=== PATIENT | male | born 1990 | race Caucasian/White ===

== ENCOUNTER 2016-08-07 08:09 | Emergency (ER) | payer SELFPAY ==
--- NOTE | 2016-08-07 08:26 | ER Document Report ---
ED GI/ - General Mode of Arrival: Ambulatory Information source: Patient - HPI Patient complains to provider of: Abdominal pain Onset: Other - see above Timing/Duration: Persistent Quality of pain: Cramping <DELORES GOEL - Last Filed: 08/08/16 06:04> <BOBBY BALDWIN - Last Filed: 08/13/16 22:48> - General Stated Complaint: ABDOMINAL PAIN Time Seen by Provider: 08/07/16 08:25 Notes: Patient is a 26-year-old male who presents to the emergency department today with complaints of right flank and right lower quadrant pain. Patient states he has had decreased urine output. Patient does note that he has been lifting frequent heavy objects at work. Patient states he had a normal bowel movement yesterday. Patient denies any nausea, vomiting, diarrhea, or recent trauma to that area. (DELORES GOEL) - Related Data Allergies/Adverse Reactions: No Known Allergies Allergy (Unverified 04/12/13 22:49) Past Medical History - General Information source: Patient - Social History Smoking Status: Current Every Day Smoker Cigarette use (# per day): Yes Frequency of alcohol use: None Drug Abuse: None Lives with: Family Family History: None Pulmonary Medical History: Reports: Hx Asthma Psychiatric Medical History: Reports: Hx Depression Past Surgical History: Reports: Hx Testicular Surgery - vasectomy 03/27 - Immunizations Hx Diphtheria, Pertussis, Tetanus Vaccination: Yes <DELORES GOEL - Last Filed: 08/08/16 06:04> Review of Systems - Review of Systems Constitutional: No symptoms reported EENT: No symptoms reported Cardiovascular: No symptoms reported Respiratory: No symptoms reported Gastrointestinal: See HPI, Abdominal pain. denies: Diarrhea, Nausea, Vomiting Genitourinary: No symptoms reported Male Genitourinary: No symptoms reported Musculoskeletal: No symptoms reported Skin: No symptoms reported Hematologic/Lymphatic: No symptoms reported Neurological/Psychological: No symptoms reported -: Yes All other systems reviewed and negative <DELORES GOEL - Last Filed: 08/08/16 06:04> Physical Exam <DELORES GOEL - Last Filed: 08/08/16 06:04> <BOBBY BALDWIN - Last Filed: 08/13/16 22:48> - Vital signs Vitals: Temp Pulse Resp BP Pulse Ox 97.9 F 53 L 16 130/77 H 100 08/07/16 08:16 08/07/16 08:16 08/07/16 08:16 08/07/16 08:16 08/07/16 08:16 - Notes Notes: Physical Exam: General: Alert, appears well. HEENT: Normocephalic. Atraumatic. PERRL. Extraocular movements intact. Oropharynx clear. Neck: Supple. Non-tender. Respiratory: No respiratory distress. Clear and equal breath sounds bilaterally. Cardiovascular: Regular rate and rhythm. Abdominal: Mild right lower quadrant tenderness with palpation. No distension. Normal Bowel Sounds. Genitourinary: Denies testicular pain. Back: Non-tender. No deformity or step off. Extremities: Moves all four extremities. Upper extremities: Normal inspection. Normal ROM. Lower extremities: Normal inspection. No edema. Normal ROM. Neurological: Normal cognition. AAOx4. Normal speech. Psychological: Normal affect. Normal Mood. Skin: Warm. Dry. Normal color. (DELORES GOEL) Course - Laboratory Result Diagrams: 08/07/16 10:32 08/07/16 10:32 <DELORES GOEL - Last Filed: 08/08/16 06:04> - Laboratory Result Diagrams: 08/07/16 10:32 08/07/16 10:32 <BOBBY BALDWIN - Last Filed: 08/13/16 22:48> - Re-evaluation Re-evalutation: 08/07/16 13:26 08/07/16 14:17 Patient presents emergency department chief complaint abdominal pain. He says it was severe he was doubled over and girlfriends and he was crying attending is emerged from he says completely resolved. He denies any nausea vomiting diarrhea or blood in the stool. No fevers chills cough chest pain or shortness of breath. Denies any history of trauma testicular pain or urinary complaints other than to say that he is having trouble urinating. Says he thinks he had a history of kidney stones in the past. On physical examination he is well- appearing nontoxic in no acute distress heart lungs regular clear to auscultation bilaterally abdomen mild tenderness in the right lower quadrant without associated rebound rigidity or peritoneal signs. Denies any testicular pain or trauma no flank tenderness or back pain. Mildly elevated white blood cell count with no bandemia afebrile negative additional labs and urinalysis CT of the abdomen and pelvis with IV and oral contrast radiologist states no acute findings. Serial assessments pain is completely resolved in the ED no peritoneal signs will discharge for primary care physician in 1-2 days and discussed reasons for ED return sooner (BOBBY BALDWIN) - Vital Signs Vital signs: Temp Pulse Resp BP Pulse Ox 98.1 F 71 16 128/79 H 97 08/07/16 13:48 08/07/16 13:48 08/07/16 13:48 08/07/16 13:48 08/07/16 13:48 - Laboratory Laboratory results interpreted by me: 08/07/16 08/07/16 09:07 10:32 WBC 15.7 H Seg Neutrophils % 81.3 H Absolute Neutrophils 12.8 H Urine Blood MODERATE H Ur Leukocyte Esterase TRACE H Discharge <DELORES GOEL - Last Filed: 08/08/16 06:04> <BOBBY BALDWIN - Last Filed: 08/13/16 22:48> - Discharge Clinical Impression: Abdominal Pain Condition: Stable Disposition: HOME, SELF-CARE Additional Instructions: Abdominal Pain There are many causes of abdominal pain. Pain can mean a serious problem requiring surgery (such as appendicitis). It can also be an innocent problem that goes away on its own (such as a viral infection). Often, time must pass to determine the cause of pain. The physician does not feel that hospitalization is necessary, at present. Things may change within the next 24 hours. Call the doctor or come back for re- examination if any problems occur, such as: (1) Pain that becomes more severe, steady, or becomes concentrated in one specific area. Also, pain that is more severe with movement or coughing. (2) Vomiting that persists or becomes more frequent. (3) Blood in the vomitus, urine, or bowel movements. Blood in the stool may have a tarry or black appearance. (4) Shaking chills or fever greater than 100 degrees F. (5) The abdomen becomes more distended or swollen. (6) Bowel movements cease. (7) Failure to improve as expected. Referrals: [facility] [Provider Group] (Follow up for a recheck and reevaluation in 1-2 days return for increased worsening in) Scribe Attestation: 08/07/16 13:26 I personally performed the services described in the documentation reviewed the documentation recorded by my scribe in my presence and it accurately and completely records my words and actions (BOBBY BALDWIN) Scribe Documentation - Scribe Written by Kell:: Kell Douglas, 08/07/2016 1404 acting as scribe for :: Benjie <DELORES GOEL - Last Filed: 08/08/16 06:04>
[2016-08-07 09:30] LABS: APPEARANCE,URINE SLIGHTLY-CLOUDY; BILIRUBIN,URINE NEGATIVE (NEGATIVE); GLUCOSE, URINE NEGATIVE (NEGATIVE); KETONES,URINE NEGATIVE (NEGATIVE); LEUKOCYTE ESTERASE,URINE TRACE (NEGATIVE); NITRITE,URINE NEGATIVE (NEGATIVE); PROTEIN,URINE NEGATIVE (NEGATIVE); URINE SPECIFIC GRAVITY 1.021; UROBILINOGEN,URINE NEGATIVE mg/dL (<2.0)
[2016-08-07 10:01] LABS: URINE BARBITURATES SCREEN NEGATIVE; URINE METHADONE SCREEN NEGATIVE; URINE OPIATES LOW NEGATIVE; URINE PHENCYCLIDINE SCREEN NEGATIVE
[2016-08-07 11:21] LABS: ABSOLUTE EOSINOPHILS # (AUTO) 0.2 10^3/uL (0.0-0.6); ABSOLUTE LYMPHOCYTES (AUTO) 2.1 10^3/uL (0.5-4.7); ABSOLUTE MONOCYTES (AUTO) 0.7 10^3/uL (0.1-1.4); ABSOLUTE NEUT (AUTO) 12.8 10^3/uL (1.7-8.2); BASOPHILS % (AUTO) 0.2 % (0-2); HEMATOCRIT 43.3 % (37.9-51.0); HEMOGLOBIN 14.5 g/dL (13.5-17.0); HGB HCT DIFFERENCE 0.2; LYMPHOCYTES % (AUTO) 13.1 % (13-45); MEAN CORPUSCULAR HEMOGLOBIN 29.1 pg (27.0-33.4); MEAN CORPUSCULAR HGB CONC 33.5 g/dL (32.0-36.0); MEAN CORPUSCULAR VOLUME 87 fl (80-97); MONOCYTES % (AUTO) 4.4 % (3-13); RED CELL DISTRIBUTION WIDTH 13.5 % (11.5-14.0); SEGMENTED NEUTROPHILS % (AUTO) 81.3 % (42-78); WHITE BLOOD COUNT 15.7 10^3/uL (4.0-10.5)
[2016-08-07 11:44] LABS: ALANINE AMINOTRANSFERASE 39 U/L (21-72); ALKALINE PHOSPHATASE 84 U/L (38-126); ANION GAP 12 (5-19); ASPARTATE AMINO TRANSFERASE 25 U/L (17-59); BILIRUBIN,DIRECT 0.3 mg/dL (0.0-0.4); BILIRUBIN,TOTAL 0.6 mg/dL (0.2-1.3); BLOOD UREA NITROGEN 16 mg/dL (7-20); CALCIUM 9.5 mg/dL (8.4-10.2); CARBON DIOXIDE 24 mmol/L (22-30); CHLORIDE 106 mmol/L (98-107); CREATININE RESULT 0.85 mg/dL (0.52-1.25); GLUCOSE 93 mg/dL (75-110); LIPASE 48.7 U/L (23-300); POTASSIUM 3.8 mmol/L (3.6-5.0); SODIUM 142.3 mmol/L (137-145)
--- NOTE | 2016-08-07 12:45 | RADIOLOGY REPORT (SQ) ---
EXAM DESCRIPTION: CT ABD/PELVIS WITH IV ORAL COMPLETED DATE/TIME: 08/07/2016 12:06 pm REASON FOR STUDY: rlq pain COMPARISON: None. TECHNIQUE: CT scan of the abdomen and pelvis performed using helical scanning technique with dynamic intravenous contrast injection. Patient drank Oral contrast. Images reviewed with lung, soft tissue, and bone windows. Reconstructed coronal and sagittal MPR imag es reviewed. Delayed images for evaluation of the urinary system also acquired. All images stored on PACS. All CT scanners at this facility use dose modulation, iterative reconstruction, and/or weight based d osing when appropriate to reduce radiation dose to as low as reasonably achievable (ALARA). [facility]: Dose Right [facility]: CareDose [facility]: Dose Right [facility]: Teradose 4D [facility]: Earbits CONTRAST TYPE AND DOSE: contrast/concentration: Isovue 370.00 mg/ml; Total Contrast Delivered: 66.0 ml; Total Saline Delivered: 57.5 ml RENAL FUNCTION: None required. The patient is less than 50 years old. RADIATION DOSE: Up-to-date CT equipment and radiation dose reduction techniques were employed. CTDIv ol: 2.8 - 3.2 mGy. DLP: 311 mGy-cm.. LIMITATIONS: None. FINDINGS: LOWER CHEST: No significant findings. No nodules or infiltrates. LIVER: Normal size. No masses or dilated ducts. SPLEEN: Normal size. No focal lesions. PANCREAS: No masses. No significant calcifications. No adjacent inflammation or peripancreatic fluid collections. Pancreatic duct not dilated. GALLBLADDER: No identified stones by CT criteria. No inflammatory changes to suggest cholecystitis. ADRENAL GLANDS: No significant masses or asymmetry. RIGHT KIDNEY AND URETER: No solid masses. No significant calcifications. No hydronephrosis or hyd roureter. LEFT KIDNEY AND URETER: No solid masses. No significant calcifications. No hydronephrosis or hydr oureter. AORTA AND VESSELS: No aneurysm. No dissection. Renal arteries, SMA, celiac without stenosis. RETROPERITONEUM: No retroperitoneal adenopathy, hemorrhage or masses. BOWEL AND PERITONEAL CAVITY: No masses or inflammatory changes. No free fluid or peritoneal masses. APPENDIX: Normal, best shown on the coronal images 31 through 33. PELVIS: No mass or free fluid. Normal bladder. ABDOMINAL WALL: No masses. No hernias. BONES: No significant or acute findings. OTHER: No other significant finding. IMPRESSION: NO SIGNIFICANT OR ACUTE FINDING IN THE ABDOMEN OR PELVIS ON CT SCAN WITH IV CONTRAST. TECHNICAL DOCUMENTATION: JOB ID: [id number] Quality ID # [id number]: Final reports with documentation of one or more dose reduction techniques (e.g., Au tomated exposure control, adjustment of the mA and/or kV according to patient size, use of iterative reconstruction technique) 2010 [employer]- All Rights Reserved
[2016-08-07 13:56] VITALS: BP 128/79
== END 2016-08-07 13:52 | disposition home or self-care (01) ==
LOC: ER 08:09
DX: R10.31 Right lower quadrant pain (principal); R39.198 Other difficulties with micturition; F17.210 Nicotine dependence, cigarettes, uncomplicated; Z87.442 Personal history of urinary calculi; Z98.52 Vasectomy status
CPT/HCPCS: 36415; 74177; 80053; 80307; 81001; 83690; 85025; 99284